=== PATIENT | female | born 1955 | race Caucasian/White ===

== ENCOUNTER 2025-05-06 13:11 | Emergency (ER) | payer OTHER, SELFPAY ==
--- NOTE | ~2025-05-06 | CT_ITS ---
EXAM: CT cervical spine wo con - 05/06/2025 13:28 CDT History: 69 years old Female with fall COMPARISON: None available. PROCEDURE: CT of the cervical spine without contrast. Axial, sagittal and coronal reformatted plane s were evaluated. Automatic exposure control was used for this study. FINDINGS: No acute fracture or subluxation. Straightening of cervical lordosis, likely positional or may be rel ated to muscle spasm. Multilevel degenerative changes of the cervical spine include varying degrees o f disk space narrowing, endplate osteophytosis as well as facet and uncal arthropathy. Prevertebral s oft tissues are within normal limits. Visualized lung apices are clear. Partial opacification of left mastoid air cells. IMPRESSION: No evidence for cervical spine fracture or traumatic subluxation. Multilevel degenerative changes of the cervical spine. Partial opacification of left mastoid air cells. Correlate clinically to rule out left acute mastoidi tis. Reviewed, dictated and finalized at location A. IMPRESSION: No evidence for cervical spine fracture or traumatic subluxation. Multilevel degenerative changes of the cervical spine. Partial opacification of left mastoid air cells. Correlate clinically to rule o ut left acute mastoiditis.
--- NOTE | ~2025-05-06 | CT_ITS ---
EXAMINATION: CT brain wo con DATE: 05/06/2025 13:35 INDICATION: Status post fall. Patient on blood thinners. TECHNIQUE: Computed tomography (CT) of the head was performed without intravenous contrast. The dose- length product was 605.33 mGy-cm. Automated exposure control and iterative reconstruction technique were employed. COMPARISON: None FINDINGS: Generalized atrophy. There are scattered mild periventricular and subcortical white matter changes, most likely related to small vessel ischemic disease (microangiopathy). There is intracrania l atherosclerosis. There is mucosal thickening in the ethmoid and left sphenoid sinuses. Small left m astoid effusion. No depressed skull fractures. No acute infarction, hemorrhage, mass or mass effect. IMPRESSION: 1. No acute intracranial abnormality. Reviewed, dictated and finalized at location A.
--- NOTE | ~2025-05-06 | CT_ITS ---
EXAMINATION: CT diagnostic chest wo con DATE: 05/06/2025 19:52 INDICATION: rib pain, s/p fall TECHNIQUE: Computed tomography (CT) of the chest was performed without intravenous contrast. Addition al 3D reconstructions utilizing coronal maximum intensity projection (MIP) were performed. Automated exposure control and iterative reconstruction technique were employed. The dose-length product was 7 05.81 mGy-cm. COMPARISON: None FINDINGS: Couple small para fissural lymph nodes along the right major fissure, the larger measuring 4 mm. Mild atelectasis anteriorly at the right middle lobe and lingula. No pneumonia, pulmonary edema, pleural effusion or pneumothorax. Heart size is normal. Atherosclerotic coronary artery calcific location. No pericardial effusion. Thoracic aorta is normal in caliber. No pathologically enlarged thoracic lymph adenopathy. There are a few subtle nondisplaced bilateral lateral and anterolateral rib fractures. Co mmon bile duct is mildly dilated to 1.3 cm which is within normal limits post cholecystectomy. Visual ized upper abdomen is otherwise unremarkable. Mild thoracic and moderate lower cervical spondylosis. Chronic appearing mild likely physiologic anterior wedging at T11 and T12. IMPRESSION: 1. A few subtle nondisplaced bilateral lateral and anterolateral rib fractures. No pneumothorax or ot her acute cardiopulmonary disease. Reviewed, dictated and finalized at location A. IMPRESSION: 1. A few subtle nondisplaced bilateral lateral and anterolateral rib fractures. No pneumothorax or other acute cardiopulmonary disease.
--- NOTE | ~2025-05-06 | XR_ITS ---
EXAM/PROCEDURE: XR chest 2V - 05/06/2025 13:35 CDT HISTORY: 69 years old Female with injury TECHNIQUE: Two view(s) of the chest. COMPARISON: None available. FINDINGS: LUNGS/ PLEURA: No focal consolidation. No appreciable pneumothorax or large pleural effusion. HEART/ MEDIASTINUM: Heart appears normal in size. BONES: Degenerative changes. OTHER: Visualized upper abdomen is unremarkable. IMPRESSION: No acute process. Reviewed, dictated and finalized at location A. IMPRESSION: No acute process.
--- NOTE | ~2025-05-06 | XR_ITS ---
EXAM/ PROCEDURE: XR knee RT min 4V - 05/06/2025 13:35 CDT HISTORY: 69 years old Female with injury COMPARISON: None available TECHNIQUE: Four view(s) FINDINGS/ IMPRESSION: Status post right knee arthroplasty with intact hardware and no loosening. There are no fractures or dislocations.Joint space narrowing, subchondral sclerosis, subchondral cyst formation and osteophyte formation, compatible with mild osteoarthritis. Reviewed, dictated and finalized at location A.
--- NOTE | 2025-05-06 19:36 | ED_ITS ---
HPI - Fall General Chief Complaint: Fall Stated Complaint: fall Time Seen by Provider: 05/06/25 18:11 History of Present Illness HPI Narrative: 69-year-old female presents to the emergency department for ground level fall that occurred 5 days ago. Patient states she was sitting on the toilet was loose and she fell off of the toilet. She hit her head but did not lose consciousness. 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 She is reporting pain to her bilateral inferior anterior and lateral ribs and right knee. She has not taking anything for pain. Related Data Allergies Allergy/AdvReac Type Severity Reaction Status Date / Time Penicillins Allergy Unknown Verified 05/06/25 13:16 Review of Systems Review of Systems: All systems reviewed & are unremarkable except as noted in HPI and below Exam Narrative: GENERAL: Well-appearing, well-nourished, and in no acute distress. HEAD: Normocephalic, atraumatic. EYES: EOMI. ENT: Nares clear, no rhinorrhea or epistaxis. Mucous membranes moist. Bilateral TMs are gonzalez nonbulging with serous effusions, no pain, erythema or edema over mastoids NECK: No midline cervical spinous tenderness, crepitus, step-offs or deformities BACK: No midline thoracolumbar spinous tenderness, crepitus, step-offs or deformities CHEST: Clear to auscultation. No respiratory distress. Tenderness to bilateral anterior lateral ribs with no overlying skin changes, crepitus, step-offs or deformities HEART: Regular rate and rhythm. No murmur heard. Normal peripheral pulses. ABDOMEN: Soft, nontender, nondistended, normal active bowel sounds. EXTREMITIES: Mild tenderness to the right knee with no obvious deformity, well healed surgical scar, full range of motion, no erythema or effusion, no tenderness remainder of extremity. DP pulses 2+. No tenderness remainder upper or lower extremities. SKIN: Warm, dry, no rash. NEURO: No focal deficits. Alert and oriented x3 Course Vital Signs Vital signs: Vital Signs Temperature 97.7 F 05/06/25 20:14 Pulse Rate 78 05/06/25 20:14 Respiratory Rate 20 05/06/25 20:14 Blood Pressure 133/69 05/06/25 20:14 Pulse Oximetry 96 05/06/25 20:14 Temperature 97.7 F 05/06/25 20:14 Pulse Rate 78 05/06/25 20:14 Respiratory Rate 20 05/06/25 20:14 Blood Pressure 133/69 05/06/25 20:14 Pulse Oximetry 96 05/06/25 20:14 MDM - Fall MDM Narrative Medical decision making narrative: 69-year-old female presents to the emergency department for a mechanical fall that occurred 5 days ago. Vitals are stable. Patient is afebrile and nontoxic appearing. Patient did hit her head but did not lose consciousness. She is anticoagulated on Eliquis for prior DVT. She is reporting pain to her bilateral inferior anterior lateral ribs and right knee. Imaging obtained in triage inclu de CT brain which shows no acute intracranial finding, CT cervical spine which shows no evidence for cervical spine fracture or traumatic subluxation with multilevel degenerative changes of the cervical spine. There is evidence of partial opacification of the left mastoid air cells with no clinical findings concerning for mastoiditis. X-ray of the right knee shows status post right knee arthroplasty with intact hardware and no loosening, no fractures or dislocations. Chest x-ray shows no acute process. Given patient's remarkable reproducible tenderness to the bilateral inferior anterior lateral chest wall, will obtain CT chest without contrast to evaluate for rib fractures. CT chest shows a few subtle nondisplaced bilateral lateral and anterolateral rib fractures with no pneumothorax or other acute cardiopulmonary disease. I did discuss findings with radiologist who confirms at the rib fractures are so subtle that he is unable to definitively count a number of fractures and is only able to see subtle cortical irregularities. Patient was updated on results. Will send her home with incentive spirometry and advised frequent usage, Tylenol p.r.n. for pain and oxycodone for omayra kthrough pain, lidocaine patches and close follow-up with PCP. Discussed strict ED return precautions. She is agreeable with the plan verbalized understanding. Discharged in stable condition. Discharge Plan Discharge Clinical Impression: Multiple rib fractures Qualifiers: Encounter type: initial encounter Fracture type: closed Laterality: bilateral Qualified Code(s): S22.43XA - Multiple fractures of ribs, bilateral, initial encounter for closed fracture Knee pain, right Qualifiers: Chronicity: acute Qualified Code(s): M25.561 - Pain in right knee Patient Disposition: Home Condition: Stable Instructions: Antibiotic Form, Rib Fracture (ED), Knee Pain (ED) Additional Instructions: Your evaluated in the emergency department after a fall. Your found have multiple rib fractures. Please use the incentive spirometer several times a day as discussed. Take Tylenol as needed for pain and use lidocaine patches as needed for pain. Take oxycodone as needed for breakthrough pain. Follow-up closely with the PCP a referred you to. Return to the emergency department if you develop worsening chest pain, shortness of breath, cough, fever or other concerning symptoms. Patient Language: Armenian Prescriptions: New acetaminophen 500 mg capsule 500 mg PO Q6H PRN (Reason: pain) Qty: 14 0RF lidocaine 5 % adhesive patch,medicated 1 patch topical DAILY Qty: 15 0RF Rx Instructions: leave on most painful area for up to 12 hrs. do not use more than 1 patch in a 24-hour period. oxycodone 5 mg capsule 5 mg PO Q8H PRN (Reason: pain) Qty: 14 0RF Follow-up/Referrals: PHYSICIAN NOT ON STAFF,NONSTAFF [Primary Care Provider] - Ayden Kurtz MD [Physician] -
[2025-05-06] MEDS: ACETAMINOPHEN 500 MG TABLET 1000 MG PO (20:06)
[2025-05-06] MEDS: CYCLOBENZAPRINE HCL 5 MG TABLET PO (20:06)
[2025-05-06] MEDS: LIDOCAINE 5% PATCH 1 PATCH TRANSDERM (20:07)
[2025-05-06 20:14] VITALS: BP 133/69; PULSE 78; RESP 20; TEMP 36.5; O2SAT 96
== END 2025-05-06 21:20 | disposition home or self-care (01) ==
PROVIDERS: Emergency Provider Physician Assistant
DX: S22.43XA Multiple fractures of ribs, bilateral, initial encounter for closed fracture (principal); S89.91XA Unspecified injury of right lower leg, initial encounter; Z86.718 Personal history of other venous thrombosis and embolism; Z79.01 Long term (current) use of anticoagulants; W18.11XA Fall from or off toilet without subsequent striking against object, initial encounter
CPT/HCPCS: 70450; 71046; 71250; 72125; 73564; 99284; A9270